=== PATIENT | male | born 1990 | race African-American/Black ===

== ENCOUNTER 2022-06-07 15:58 | Emergency (ER) | payer MEDICAID ==
[~2022-06-07] VITALS: Ht 172.7 cm; Wt 75.0 kg
[2022-06-07 16:19] VITALS: BP 133/101
[2022-06-07 19:37] LABS: BASOPHILS % 0.6 % (0.0-2.0); EOSINOPHILS % 0.1 % (0.0-5.0); HEMATOCRIT. 42.5 % (42.0-52.0); HEMOGLOBIN. 14.8 g/dL (14.0-18.0); MEAN CORPUSCULAR HEMOGLOBIN 29.5 pg (28.0-32.0); MEAN CORPUSCULAR VOLUME 84.5 fL (80.0-94.0); MEAN PLATELET VOLUME 8.7 fl (7.4-10.4); NEUTROPHILS % 62.3 % (40.0-76.0); PLATELET 192 x1000/uL (130-400); RED BLOOD CELL COUNT 5.02 mill/uL (4.7-6.1); RED CELL DISTRIBUTION WIDTH 13.8 % (11.6-14.6)
[2022-06-09 06:21] LABS: CHLORIDE 104 mEq/L (98-107)
== END 2022-06-07 23:05 | disposition home or self-care (01) ==
LOC: ER 16:29
DX: R69 Illness, unspecified (principal)
CPT/HCPCS: 36415; 80053; 85025; 99284